=== PATIENT | female | born 1970 | race Caucasian/White ===

== ENCOUNTER 2018-01-28 14:12 | Outpatient (CLI) | payer OTHER ==
[~2018-01-28] VITALS: Ht 162.6 cm; Wt 117.5 kg
[~2018-01-28 14:12] MED LIST: IBUP-15 PO
[2018-01-28 14:39] VITALS: BP 127/69
[2018-01-28] MEDS ORDERED: CALC-823 PO (14:39)
[2018-01-28] MEDS ORDERED: PANT40TA3 PO (14:39)
[2018-01-28] MEDS ORDERED: RANI150T46 PO (14:39)
[2018-01-28] MEDS ORDERED: MULT-884 PO (14:39)
[2018-01-28] MEDS ORDERED: LEVO75TA6 PO (14:39)
[2018-01-28 14:47] LABS: BASOPHILS % (AUTO) 0 % (0-10); EOSINOPHILS # (AUTO) 0.1 10^3/uL (0.0-0.3); EOSINOPHILS % (AUTO) 1 % (0-10); HEMATOCRIT 39 % (35-52); HEMOGLOBIN 12.9 G/DL (11.5-16.0); LYMPHOCYTES # (AUTO) 2.6 X 10^3 (1.0-4.0); LYMPHOCYTES % (AUTO) 36 % (12-44); MEAN CORPUSCULAR HEMOGLOBIN 32 PG (25-34); MEAN CORPUSCULAR HGB CONC 33 G/DL (32-36); MEAN CORPUSCULAR VOLUME 95 FL (80-99); MEAN PLATELET VOLUME 9.8 FL (7.4-10.4); MONOCYTES # (AUTO) 0.6 X 10^3 (0.0-1.0); MONOCYTES % (AUTO) 9 % (0-12); NEUTROPHILS # (AUTO) 3.8 X 10^3 (1.8-7.8); NEUTROPHILS % (AUTO) 53 % (42-75); PLATELET COUNT 320 10^3/uL (130-400); RED BLOOD COUNT 4.07 10^6/uL (4.35-5.85); RED CELL DISTRIBUTION WIDTH 12.4 % (10.0-14.5); WHITE BLOOD COUNT 7.1 10^3/uL (4.3-11.0)
== END 2018-01-28 14:45 | disposition home or self-care (01) ==
LOC: PREOP 14:12
PROVIDERS: ATTEND Surgery
DX: Z01.812 Encounter for preprocedural laboratory examination (principal); Z11.2 Encounter for screening for other bacterial diseases; E66.01 Morbid (severe) obesity due to excess calories; Z68.41 Body mass index [BMI] 40.0-44.9, adult
CPT/HCPCS: 36415; 85025; 87081

== ENCOUNTER 2018-01-31 09:35 | Inpatient (IN) | payer OTHER ==
[~2018-01-31] VITALS: Ht 162.6 cm; Wt 112.8 kg
[~2018-01-31 09:35] MED LIST changes: +CALC-823 PO; +LEVO75TA6 PO; +MULT-884 PO; +PANT40TA3 PO; +RANI150T46 PO
[2018-01-31 11:12] VITALS: BP 135/75
[2018-01-31] MEDS ORDERED: ceFAZolin 2 GM IV Premixed 50 ML IV ONE (11:15)
--- OUTSIDE RECORDS SUMMARY | 2018-01-31 11:25 | XMS REPORT ---
Author Author MAYTE REDDY Organization [facility] Address [address] [place] [address] Care Team Providers Care Grocery Supervisor Name Role Phone MAYTE REDDY Unavailable PROBLEMS Unknown Problems ALLERGIES No Information ENCOUNTERS Encounter Location Date Diagnosis [facility] [address] [facility] [id number] [address] Dec, [facility] [address] [facility] [id number] [address] Dec, No condition on [place] I Z03.89 IMMUNIZATIONS No Known Immunizations SOCIAL HISTORY Never Assessed REASON FOR VISIT OV to [facility] PLAN OF CARE VITAL SIGNS MEDICATIONS Unknown Medications RESULTS No Results PROCEDURES No Known procedures INSTRUCTIONS MEDICATIONS ADMINISTERED No Known Medications
--- OUTSIDE RECORDS SUMMARY | 2018-01-31 11:25 | XMS REPORT ---
Author Author MAYTE REDDY Organization [facility] [place] Address [address] [place] [address] Care Team Providers Care Life Science Research Assistant Name Role Phone MAYTE REDDY Unavailable PROBLEMS Unknown Problems ALLERGIES No Information ENCOUNTERS Encounter Location Date Diagnosis [facility] [place] [address] [facility] [id number] [place] [address] Dec, No condition on [place] I Z03.89 IMMUNIZATIONS No Known Immunizations SOCIAL HISTORY Never Assessed REASON FOR VISIT Psychological evaluation for bariatric surgery. PLAN OF CARE VITAL SIGNS MEDICATIONS Unknown Medications RESULTS No Results PROCEDURES Procedure Date Ordered Result Body Site Psych diagnostic evaluation, new patient Dec 24, 2017 INSTRUCTIONS MEDICATIONS ADMINISTERED No Known Medications
[2018-01-31] MEDS ORDERED: FAMOTIDINE 20MG/2ML IV (PEPCID) IV ONE (11:30)
[2018-01-31] MEDS ORDERED: SCOPOLAMINE 1.5 MG (TRANSDERM-SCOP) PATCH TOP ONE (11:30)
[2018-01-31] MEDS ORDERED: ONDANSETRON 4 MG/2 ML (SDV) Z0FRAN IV ONE (11:30)
[2018-01-31] MEDS: LACTATED RINGERS 1,000 ML IV PRN ×2 (11:34→16:43)
[2018-01-31] MEDS ORDERED: FAMOTIDINE 20MG/2ML IV (PEPCID) ONE (11:34)
[2018-01-31] MEDS ORDERED: ONDANSETRON 4 MG/2 ML (SDV) Z0FRAN ONE ×3 (11:34→16:22)
[2018-01-31] MEDS ORDERED: SCOPOLAMINE 1.5 MG (TRANSDERM-SCOP) PATCH ONE (11:34)
[2018-01-31] MEDS ORDERED: proPOfol 200 MG/20 ML (DIPRIVAN) VIAL IV ONE (12:58)
[2018-01-31] MEDS ORDERED: DEXAMETHASONE 10 MG/ML (DECADRON) 1 ML VIAL ONE (12:58)
[2018-01-31] MEDS ORDERED: NEOSTIGMINE 1 MG/ML 5 ML SYRINGE ONE (12:58)
[2018-01-31] MEDS ORDERED: SEVOFLURANE (ULTANE) 15 ML INHAL SOLN ONE (12:58)
[2018-01-31] MEDS ORDERED: MIDAZOLAM 2 MG/2 ML (VERSED) VIAL ONE (12:58)
[2018-01-31] MEDS ORDERED: LIDOCAINE PF 2% 5 ML (XYLOCAINE) VIAL ONE (12:58)
[2018-01-31] MEDS ORDERED: GLYCOPYRROLATE 0.2 MG/ML (ROBINUL) 2 ML VIAL ONE (12:58)
[2018-01-31] MEDS ORDERED: ROCURONIUM 10 MG/ML 5 ML SYRINGE IV ONE (12:58)
[2018-01-31] MEDS ORDERED: fentaNYL INJECTION 250 MCG/5 ML AMP ONE (12:58)
[2018-01-31] MEDS ORDERED: SUCCINYLCHOLINE INJ 100 MG/5 ML SYR ONE (12:59)
[2018-01-31] MEDS ORDERED: BUP/EPI 0.5% 1:200,000 (SENSORCAINE) 30 ML VIAL ONE (13:01)
--- NOTE | 2018-01-31 13:11 | Progress Note-Pre Operative ---
Pre-Operative Progress Note H&P Reviewed The H&P was reviewed, patient examined and no changes noted. Date Seen by Provider: Jan 31, 2018 Time Seen by Provider: 13:00 Date H&P Reviewed: Jan 31, 2018 Time H&P Reviewed: 13:00 Pre-Operative Diagnosis: morbid obesity, JOHNNIE CALVIN VELEZ MD Jan 31, 2018 13:11
[2018-01-31] MEDS ORDERED: NS IV 1000 ML 1,000 ML IV SCH (13:12)
[2018-01-31] MEDS ORDERED: METOCLOPRAMIDE INJ 10 MG/2 ML (REGLAN) IV PRN (13:15)
[2018-01-31] MEDS ORDERED: NALOXONE 0.4 MG/ML 1 ML (NARCAN) VIAL IV PRN (13:15)
[2018-01-31] MEDS ORDERED: ONDANSETRON 4 MG/2 ML (SDV) Z0FRAN IV PRN (13:15)
[2018-01-31] MEDS ORDERED: diphenhydrAMINE 50 MG/ML INJ (BENADRYL) IVP PRN (13:15)
[2018-01-31] MEDS ORDERED: diphenhydrAMINE 50 MG/ML INJ (BENADRYL) IV PRN (13:15)
[2018-01-31] MEDS ORDERED: oxyCODONE 5 MG/5 ML ORAL SOLN (roxiCODONE) 5 ML UDC PO PRN (13:15)
[2018-01-31] MEDS ORDERED: fentaNYL INJECTION 1,000 MCG in NS (IVPB) 80 ML IV SCH (13:15)
[2018-01-31] MEDS ORDERED: RT-ALBUTEROL SULF 2.5 MG/3 ML PRE-MIX VIAL INH SCH (13:15)
--- NOTE | 2018-01-31 13:24 | Discharge Inst-Surgical ---
D/C Lap Instructions-AGUSTIN Follow Up Appt in 2 weeks Activity as tolerated No driving for 24 hours No driving while on pain medications Incentive Spirometry use every 2 hours while awake phase 1 clear liquid diet 2 weeks. Symptoms to Report: Fever over 101 degree F, Nausea/Vomiting Infection Signs and Symptoms to report: Increased redness, Foul odor of wound, Increased drainage Bathing instructions: May shower Operative Area Clean/Dry; Keep incision clean/dry If any problems/questions: Contact your physician or go to Emergency Room CALVIN VELEZ MD Jan 31, 2018 13:24
--- NOTE | 2018-01-31 16:09 | Progress Note-Post Operative ---
Post-Operative Progess Note Surgeon (s)/Pig Conveyor Operator (s) Surgeon CALVIN VELEZ MD Pig Conveyor Operator: georgina reyes MENTALLY IMPAIRED TEACHER Pre-Operative Diagnosis morbid obesity, JOHNNIE Post-Operative Diagnosis same Procedure & Operative Findings Date of Procedure 01/31/18 Procedure Performed/Findings laparoscopic gastric sleeve resection. Anesthesia Type GET Estimated Blood Loss Estimated blood loss (mL): minimal Specimens/Packing Specimens Removed stomach CALVIN VELEZ MD Jan 31, 2018 16:09
[2018-01-31] MEDS ORDERED: morphine INJ 10 MG/ML 1ML (SYR OR VIAL) ONE (16:22)
[2018-01-31] MEDS ORDERED: morphine INJ 10 MG/ML 1ML (SYR OR VIAL) IVP ONE (16:30)
[2018-01-31] MEDS ORDERED: fentaNYL INJECTION 100 MCG/2 ML AMP IVP ONE ×2 (16:30→17:45)
[2018-01-31] MEDS ORDERED: PROMETHAZINE INJ 25 MG/ML (PHENERGAN) AMP IVP ONE (16:30)
[2018-01-31] MEDS ORDERED: ONDANSETRON 4 MG/2 ML (SDV) Z0FRAN IVP PRN (16:30)
[2018-01-31 17:15] VITALS: BP 123/57
[2018-01-31] MEDS ORDERED: METOCLOPRAMIDE INJ 10 MG/2 ML (REGLAN) ONE (17:19)
[2018-01-31] MEDS: METOCLOPRAMIDE INJ 10 MG/2 ML (REGLAN) IVP SCH ×2 (17:33→22:59)
[2018-01-31 18:15] VITALS: BP 134/89
[2018-01-31] MEDS: ONDANSETRON 4 MG/2 ML (SDV) Z0FRAN IVP SCH ×2 (18:17→18:42)
[2018-01-31] MEDS: RT-ALBUTEROL SULF 2.5 MG/3 ML PRE-MIX VIAL INH SCH ×2 (18:39→21:07)
[2018-01-31] MEDS: metroNIDAZOLE 500MG/100ML IVPB 100 ML IV SCH (18:39)
[2018-01-31] MEDS: 1/2 NS W/KCL 20 MEQ/L 1,000 ML IV SCH (18:39)
[2018-01-31 19:15] VITALS: BP 128/77
[2018-01-31] MEDS ORDERED: PROMETHAZINE INJ 25 MG/ML (PHENERGAN) AMP ONE (19:36)
[2018-01-31] MEDS ORDERED: PROMETHAZINE INJ 25 MG/ML (PHENERGAN) AMP IVP PRN (19:45)
[2018-01-31] MEDS: ceFAZolin 2 GM IV Premixed 50 ML IV SCH (21:01)
[2018-01-31] MEDS: ENOXAPARIN 40 MG/0.4 ML (LOVENOX) SYR SC SCH (21:02)
[2018-02-01] VITALS (7 sets, daily range): BP systolic 53–169; BP diastolic 68–84
--- NOTE | 2018-02-01 00:08 | OPERATIVE REPORT ---
DATE OF SERVICE: 01/31/2018 ATTENDING PRIMARY CARE PHYSICIAN: Dr. Burger. PREOPERATIVE DIAGNOSES: Morbid obesity, sleep apnea. POSTOPERATIVE DIAGNOSES: Morbid obesity, sleep apnea. PROCEDURE: Laparoscopic gastric sleeve resection. SURGEON: Maria Antonia Velez MD ENTRY LEVEL FINANCIAL ANALYST: Danial Smith APRN ANESTHESIA: General endotracheal. ESTIMATED BLOOD LOSS: Minimal. FINDINGS: Mild hepatomegaly, normal appearing gallbladder. DISPOSITION: The patient tolerated the procedure well. INDICATIONS: The patient is a 47-year-old female with history of morbid obesity who is in our bariatric surgical program for the laparoscopic gastric sleeve resection and meets the medical criteria for bariatric surgery. She reports that she gained the majority of her adult weight in her 30s after the of her second child. She reports that she has tried numerous diet and exercise attempts with no success. She has tried diet programs including Chula Cornelius, Weight Watchers, Atkins, beta-hCG diet with little success. She has tried exercise regimens including walking, Cindy, aerobic exercise classes, Plyometrics as well as resistance weight training on lose some weight; however, nothing significant. She has also tried medications including phentermine, fenfluramine, Belviq, Topamax and would lose some weight; however, would regain the weight back. Her medical comorbidities related to obesity include gastroesophageal reflux disease and sleep apnea. DESCRIPTION OF PROCEDURE: The patient was brought to the operating room, laid supine on the table. After adequate IV pain and sedating medications and general endotracheal intubation, the abdomen was prepped and draped in standard surgical fashion. A 0.5% Marcaine with epinephrine was used to anesthetize the overlying skin in the left upper abdominal quadrant and a small transverse skin made using a 15 blade. An 0 silk suture was applied to the medial aspect of the incision for traction and a Veress needle inserted with a low opening pressure of 0 mmHg and the abdomen was then insufflated to 15 mmHg pressure. The Veress needle removed and a 5 mm Xcel trocar placed followed by a 5 mm 45-degree angle laparoscope visualizing the peritoneal cavity. A 4-quadrant abdominal x-ray performed. There was a mild hepatomegaly. There was normal appearing gallbladder. No hiatal hernia was identified. Under direct visualization, we then proceeded to place a midabdominal left of midline 10 mm port after the skin and peritoneal lining were anesthetized using 0.5% Marcaine with epinephrine and a transverse skin incision made using a 15 blade. In a similar manner, a midabdominal right of midline 15 mm port was placed followed by a right upper abdominal quadrant 5 mm port. The epigastric region was then anesthetized and a transverse skin incision made using 11 blade. A tract was then created to the abdominal wall layers using a trocar to a 5 mm port. Through this opening, a medium sized Kianna liver retractor was placed and the left lobe of the liver retracted anteriorly and superiorly. The patient was then placed in steep reverse Trendelenburg position. We then measured along the greater curvature from the pylorus approximately 6 cm and marked this with a marking pen. The gastrocolic ligament next to the stomach was then opened using the Sonicision next to the stomach entering the lesser sac. We then proceeded with caudal dissection until we were approximately 2 cm below our marking using Sonicision with visualization of good hemostasis. We then proceeded cephalad along the greater curvature taking down the short gastric vessels with the Sonicision with visualization of good hemostasis. The angle of His connective tissue fibers were taken down as well including the posterior stomach behind this region with visualization of good hemostasis. A 42-Setswana angled bougie was then placed under direct visualization and guided into the antrum of the stomach. Using this as our guide for gastric sleeve resection, we first proceeded with a polyglycolic acid 45 mm black load 2 cm below our marking. We then proceeded with one 60 mm black load followed by two 60 mm purple loads and a 45 mm purple load. We completed our resection allowing 2 cm near the gastroesophageal junction. The staple line corners were then clipped with 5 mm clips. The staple line was then covered with Tisseel fibrin glue and covered with omentum. The liver retractor removed and the stomach removed through the 15 mm port site. A leak test was also performed after infusing approximately 60 mL of air with no leak identified. The air was suctioned out of the oral gastric tube and removed as was the bougie. The fascia and peritoneum to the 10 and 15 mm ports were then closed under direct visualization using a Osman-Gary device and an 0 Vicryl suture. The abdomen was desufflated and remaining ports removed. All skin incisions were closed using 4-0 Monocryl running subcuticular sutures. Wounds were then cleaned and covered with Dermabond. The patient tolerated the procedure well. We will admit her for observation. We will start pain control with a REAL ESTATE SALESPERSON pump with fentanyl as well as DVT prophylaxis with early ambulation, calf SCDs as well as Lovenox injections. Tomorrow morning, we will start a phase I clear liquid diet starting at 30 mL every half hour and once she is tolerating 60 mL of fluid every half hour, have adequate pain control with oral pain medications, ambulating well, we will discharge her home. She will be instructed to follow a phase I clear liquid diet for the next 2 weeks. Job ID: [id number] DocumentID: [id number] Dictated Date: 01/31/2018 16:22:10 Ventilator Specialist Date: 02/01/2018 00:07:53 Dictated By: MARIA ANTONIA VELEZ MD
[2018-02-01] MEDS: ONDANSETRON 4 MG/2 ML (SDV) Z0FRAN IVP SCH ×4 (00:18→23:47)
[2018-02-01] MEDS: RT-ALBUTEROL SULF 2.5 MG/3 ML PRE-MIX VIAL INH SCH ×6 (01:18→22:06)
[2018-02-01] MEDS ORDERED: PROMETHAZINE INJ 25 MG/ML (PHENERGAN) AMP ONE ×2 (01:23→07:39)
[2018-02-01] MEDS: PROMETHAZINE INJ 25 MG/ML (PHENERGAN) AMP IVP PRN ×2 (01:39→07:44)
[2018-02-01] MEDS: 1/2 NS W/KCL 20 MEQ/L 1,000 ML IV SCH ×5 (01:53→22:43)
[2018-02-01] MEDS: metroNIDAZOLE 500MG/100ML IVPB 100 ML IV SCH ×2 (02:55→10:12)
[2018-02-01] MEDS: ceFAZolin 2 GM IV Premixed 50 ML IV SCH ×2 (05:17→13:01)
[2018-02-01] MEDS: METOCLOPRAMIDE INJ 10 MG/2 ML (REGLAN) IVP SCH ×2 (05:17→11:49)
[2018-02-01] MEDS: ONDANSETRON 4 MG/2 ML (SDV) Z0FRAN IVP PRN ×2 (05:18→15:32)
[2018-02-01] MEDS: PANTOPRAZOLE 40 MG (PROTONIX) TAB PO SCH (05:18)
[2018-02-01 06:05] LABS: HEMOGLOBIN 12.4 G/DL (11.5-16.0); MEAN PLATELET VOLUME 10.3 FL (7.4-10.4); RED BLOOD COUNT 3.98 10^6/uL (4.35-5.85); RED CELL DISTRIBUTION WIDTH 12.6 % (10.0-14.5); WHITE BLOOD COUNT 13.5 10^3/uL (4.3-11.0)
[2018-02-01] MEDS: ENOXAPARIN 40 MG/0.4 ML (LOVENOX) SYR SC SCH ×2 (08:35→20:30)
[2018-02-01] MEDS: SENNA W/DOCUSATE (SENOKOT S) TABLET PO SCH (08:40)
[2018-02-01] MEDS ORDERED: PANTOPRAZOLE 40 MG (PROTONIX) VIAL IV SCH (09:00)
--- NOTE | 2018-02-01 09:57 | Anesthesia-General Post-Op ---
General Patient Condition Mental Status/LOC: Same as Preop Cardiovascular: Satisfactory Nausea/Vomiting: Absent Respiratory: Satisfactory Pain: Controlled Complications: Absent Post Op Complications Complications None Follow Up Care/Instructions Patient Instructions None needed. Anesthesia/Patient Condition Patient Condition Patient is doing well, no complaints, stable vital signs, no apparent adverse anesthesia problems. No complications reported per nursing. D/C home per [facility] Criteria: No SANG CANCHOLA CRNA Feb 01, 2018 09:57
--- NOTE | 2018-02-01 10:32 | Progress Note (SOAP) ---
Subjective Date Seen by a Provider: Feb 01, 2018 Time Seen by a Provider: 10:30 Subjective/Events-last exam having significant nausea and dry heaving still. pain controlled. no fever/ chills. Objective Exam Vital Signs Date Time Temp Pulse Resp B/P (MAP) Pulse Ox O2 Delivery O2 Flow Rate FiO2 02/01/18 09:00 Room Air 0.00 02/01/18 08:10 98.8 93 20 141/69 (93) 95 Room Air 02/01/18 07:00 20 02/01/18 06:18 94 Room Air 02/01/18 04:15 99.8 88 20 165/77 (106) 95 Room Air 02/01/18 01:18 Room Air 02/01/18 00:00 99.9 91 20 169/84 (112) 100 Room Air 01/31/18 21:00 18 01/31/18 21:00 Nasal Cannula 5.00 01/31/18 19:15 98.2 79 18 128/77 (94) 100 Room Air 01/31/18 18:15 98.4 95 18 134/89 (104) 100 Room Air 01/31/18 18:00 Nasal Cannula 5.00 01/31/18 17:15 97.8 64 22 123/57 (79) 96 Room Air 01/31/18 11:12 98.0 95 18 135/75 (95) 98 Room Air I & O 02/01/18 07:00 Intake Total 1050 ml Output Total 990 ml Balance 60 ml Capillary Refill : General Appearance: No Apparent Distress HEENT: PERRL/EOMI Neck: Full Range of Motion Respiratory: Lungs Clear, Normal Breath Sounds Cardiovascular: Regular Rate, Rhythm Gastrointestinal: soft, tenderness Extremity: Normal Capillary Refill Neurologic/Psychiatric: Alert, Oriented x3 Skin: Normal Color Lymphatic: No Adenopathy Results Lab Laboratory Tests 01/31/18 11:00: Urine Test NEGATIVE 02/01/18 05:15: White Blood Count 13.5H, Red Blood Count 3.98L, Hemoglobin 12.4, Hematocrit 38, Mean Corpuscular Volume 96, Mean Corpuscular Hemoglobin 31, Mean Corpuscular Hemoglobin Concent 33, Red Cell Distribution Width 12.6, Platelet Count 315, Mean Platelet Volume 10.3 Assessment/Plan Assessment/Plan Assess & Plan/Chief Complaint s/p laparoscopic gastric sleeve resection. will add decadron 4mg IV. start phase 1 clear liquid diet when able to. OOB-chair and ambulate. Clinical Quality Measures DVT/VTE Risk/Contraindication: Risk Factor Score Per Nursin RFS Level Per Nursing on Admit: 3=High CALVIN VELEZ MD Feb 01, 2018 10:31
[2018-02-01] MEDS: DEXAMETHASONE 4 MG/ML SDV (DECADRON) IV SCH ×3 (11:49→23:46)
[2018-02-01] MEDS ORDERED: METOCLOPRAMIDE INJ 10 MG/2 ML (REGLAN) IVP PRN (13:15)
[2018-02-01] MEDS: PANTOPRAZOLE 40 MG (PROTONIX) VIAL IV SCH (20:30)
[2018-02-01] MEDS ORDERED: LORazepam INJ 2 MG/ML (ATIVAN) VIAL IVP PRN (20:45)
[2018-02-02] MEDS: RT-ALBUTEROL SULF 2.5 MG/3 ML PRE-MIX VIAL INH SCH ×3 (02:27→10:38)
[2018-02-02 04:00] VITALS: BP 145/74
[2018-02-02] MEDS: 1/2 NS W/KCL 20 MEQ/L 1,000 ML IV SCH (05:25)
[2018-02-02] MEDS: PANTOPRAZOLE 40 MG (PROTONIX) TAB PO SCH (06:09)
[2018-02-02] MEDS: DEXAMETHASONE 4 MG/ML SDV (DECADRON) IV SCH (06:09)
[2018-02-02] MEDS: ONDANSETRON 4 MG/2 ML (SDV) Z0FRAN IVP SCH (06:09)
[2018-02-02] MEDS: PANTOPRAZOLE 40 MG (PROTONIX) VIAL IV SCH (07:13)
[2018-02-02 07:42] VITALS: BP 135/70
--- NOTE | 2018-02-02 11:12 | Progress Note (SOAP) ---
Subjective Date Seen by a Provider: Feb 02, 2018 Time Seen by a Provider: 11:00 Subjective/Events-last exam doing much better today. no nausea/vomiting. tolerating phase 1 clear liquid diet. ambulating in halls. pain controlled. Objective Exam Vital Signs Date Time Temp Pulse Resp B/P (MAP) Pulse Ox O2 Delivery O2 Flow Rate FiO2 02/02/18 07:42 98.5 93 16 135/70 (91) 96 Room Air 02/02/18 06:10 18 02/02/18 04:00 99.6 84 18 145/74 (97) 96 Room Air 02/01/18 23:50 99.4 84 18 159/75 (103) 95 NIV CPAP 02/01/18 21:15 18 02/01/18 21:00 Room Air 0.00 02/01/18 20:00 99.6 81 18 155/70 (98) Room Air 02/01/18 16:06 99.9 93 20 53/71 (65) 96 Room Air 02/01/18 12:00 99.3 73 20 147/68 (94) 97 Room Air I & O 02/02/18 07:00 Intake Total 2105 ml Output Total 5300 ml Balance -3195 ml Capillary Refill : General Appearance: No Apparent Distress HEENT: PERRL/EOMI Neck: Full Range of Motion Respiratory: Chest Non Tender, Lungs Clear, Normal Breath Sounds Cardiovascular: Regular Rate, Rhythm Gastrointestinal: normal bowel sounds, soft, other (incisions clean/dry) Extremity: Normal Capillary Refill Neurologic/Psychiatric: Alert, Oriented x3 Skin: Normal Color Lymphatic: No Adenopathy Assessment/Plan Assessment/Plan Assess & Plan/Chief Complaint s/p laparoscopic gastric sleeve resection. will add decadron 4mg IV. tolerating phase 1 clear liquid diet. home soon. continue with clear liquids for next 2 weeks. f/u in 2 weeks. Clinical Quality Measures DVT/VTE Risk/Contraindication: Risk Factor Score Per Nursin RFS Level Per Nursing on Admit: 3=High CALVIN VELEZ MD Feb 02, 2018 11:12
[2018-02-02] MEDS: SENNA W/DOCUSATE (SENOKOT S) TABLET PO SCH (11:19)
[2018-02-02] MEDS: ENOXAPARIN 40 MG/0.4 ML (LOVENOX) SYR SC SCH (11:19)
[2018-02-02] MEDS ORDERED: PROM25TA14 PO (11:42)
[2018-02-02] MEDS ORDERED: DEXA4TAB66 PO (11:42)
[2018-02-02] MEDS ORDERED: HYDR-34 PO (11:42)
[2018-02-02 11:45] VITALS: BP 135/70
== END 2018-02-02 11:45 | disposition home or self-care (01) | DRG 621 ==
LOC: 4TH 11:00 → SDC 11:00 → EDSTATUS 11:45 → 4TH 17:19 → SDC 17:19 → 4TH 02-01 13:13 → SDC 02-02 11:45
PROVIDERS: ADMIT Surgery; ATTEND Surgery
PROC: 0DB64Z3 Excision of Stomach, Percutaneous Endoscopic Approach, Vertical (ICD-10-PCS; principal; 2018-01-31 13:48)
DX: E66.01 Morbid (severe) obesity due to excess calories (principal); Z68.41 Body mass index [BMI] 40.0-44.9, adult; G47.33 Obstructive sleep apnea (adult) (pediatric); E03.9 Hypothyroidism, unspecified; K21.9 Gastro-esophageal reflux disease without esophagitis; R11.0 Nausea; Z87.891 Personal history of nicotine dependence
CPT/HCPCS: 36415; 84703; 85027; 88307; 94664

== ENCOUNTER 2020-07-14 05:32 | Outpatient (CLI) | payer BC ==
[~2020-07-14] VITALS: Ht 162.6 cm; Wt 91.6 kg
[~2020-07-14 05:32] MED LIST changes: +DEXA4TAB66 PO; +HYDR-34 PO; -PANT40TA3 PO; +PANT40TA52 PO; +PROM25TA14 PO; +RANI-613 PO; -RANI150T46 PO
[2020-07-14] MEDS ORDERED: FAMO20TA3 PO (10:29)
== END 2020-07-14 12:27 | disposition home or self-care (01) ==
LOC: PREOP 05:32 → EDSTATUS 08:30 → PREOP 12:27
PROVIDERS: ATTEND Surgery
DX: Z01.818 Encounter for other preprocedural examination (principal)

== ENCOUNTER 2020-07-21 10:00 | Day surgery (SDC) | payer BC, OTHER ==
--- NOTE | 2020-07-20 10:55 | HISTORY AND PHYSICAL ---
DATE OF SERVICE: PROCEDURE DATE: 07/21/2020. ATTENDING PRIMARY CARE PHYSICIAN: Thomas Kang at [facility]. HISTORY OF PRESENT ILLNESS: The patient is a 49-year-old female, who is known to us. She is status post laparoscopic gastric sleeve resection by us on 01/31/2018. On today's visit, she reports that she is in need of an EGD and a colonoscopy. She reports she has not had a colonoscopy done at this point in her life. She denies any family history of any colon cancer. She denies any diarrhea or any abdominal pain, but does report episodes of constipation in which she does take Linzess on occasion. She also reports increasing reflux and is currently on Protonix 20 mg b.i.d. as well as famotidine 20 mg b.i.d. and reports that this is not helping her reflux. She also reports that she does get the feeling that food is getting stuck in her throat on occasion, but denies any nausea or vomiting. PAST MEDICAL HISTORY: Gastroesophageal reflux disease, hypothyroidism, obstructive sleep apnea, morbid obesity. PAST SURGICAL HISTORY: in 12/1991 and 09/1998, left plantar fasciitis release in 2011, right shoulder arthroscopy with repair of labrum, repair of rotator cuff in 2007, left knee arthroscopy in 1997, bladder sling and ablation in 2012, laparoscopic gastric sleeve resection on 01/31/2018, and repair of right elbow ligament in 2020. ALLERGIES: PREDNISONE and DILAUDID. MEDICATIONS: Synthroid 75 mcg daily, Protonix 20 mg b.i.d., famotidine 20 mg b.i.d., vitamin B12 daily, calcium daily, multivitamin daily. SOCIAL HISTORY: Previous for smoke at 2 packs per day for 20 years, quit in 2007. Rare for alcohol. FAMILY HISTORY: Mother with hypertension. Father with hypertension. Sister with diabetes and hypertension. Paternal grandfather with diabetes. VITAL SIGNS: Blood pressure 122/76. Current weight is 202.8 at 5 feet 4 inches with a body mass index of 34.7. REVIEW OF SYSTEMS: This is a well-nourished female, in no acute distress. She is not experiencing any shortness of breath or difficulty breathing. No chest pain, palpitations or diaphoresis. No nausea or vomiting. She denies any abdominal pain. She does report reflux, but no hematemesis or any coffee ground emesis. No diarrhea, but does report occasional constipation. No red blood per rectum. No dark tarry stools. No fever or chills. No recent inadvertent weight loss. All other review of systems negative. PHYSICAL EXAMINATION: CHEST: Clear. Good breath sounds bilaterally. HEART: Regular, no murmurs. EXTREMITIES: No lower extremity edema. Negative Homans sign. HEENT: No scleral icterus. NECK: No cervical lymphadenopathy. ABDOMEN: Soft, nontender, nondistended. SKIN: Warm, dry and pink. NEUROLOGIC: Awake, alert and oriented x3. ASSESSMENT AND PLAN: A 49-year-old female, who is in need of a screening colonoscopy, who also has worsening reflux. At this time, we will proceed with scheduling her for an EGD with biopsies as appropriate as well as possible balloon dilatation and a screening colonoscopy. The risks and benefits of the procedure as well as the procedure and home care instructions were explained to the patient. The patient verbalized understanding of instructions and agrees to proceed as planned. We will proceed with scheduling her for an EGD with biopsies as appropriate as well as possible balloon dilatation and a screening colonoscopy. Job ID: [id number] DocumentID: [id number] Dictated Date: 07/20/2020 08:45:57 Lining Feller Blindstitch Date: 07/20/2020 10:54:27 Dictated By: GEOVANY MATTA
[~2020-07-21] VITALS: Ht 163 cm; Wt 92.0 kg
[~2020-07-21 10:00] MED LIST changes: +FAMO20TA3 PO; +HURRICAINE EXT TUBE (BENZOCAINE) XX PRN; +LACTATED RINGERS 1,000 ML IV ONE; +LACTATED RINGERS 1,000 ML IV STA; +LIDOCAINE JELLY 2% 6 ML SYRINGE MM PRN
[2020-07-21 10:20] VITALS: BP 129/72
[2020-07-21] MEDS ORDERED: ONDANSETRON 4 MG/2 ML (SDV) Z0FRAN ONE (10:29)
[2020-07-21] MEDS ORDERED: MIDAZOLAM 2 MG/2 ML (VERSED) VIAL ONE (10:29)
[2020-07-21] MEDS ORDERED: PROPOFOL INJECTION 50 ML IV ONE ×2 (10:29→10:54)
[2020-07-21] MEDS ORDERED: HURRICAINE EXT TUBE (BENZOCAINE) ONE (10:34)
--- NOTE | 2020-07-21 10:40 | Progress Note-Pre Operative ---
Pre-Operative Progress Note H&P Reviewed The H&P was reviewed, patient examined and no changes noted. Date Seen by Provider: Jul 21, 2020 Time Seen by Provider: 10:00 Date H&P Reviewed: Jul 21, 2020 Time H&P Reviewed: 10:00 Pre-Operative Diagnosis: dysphagia, screening o CALVIN VELEZ MD Jul 21, 2020 10:40
[2020-07-21] MEDS ORDERED: LIDOCAINE JELLY 2% 6 ML SYRINGE ONE (10:41)
--- NOTE | 2020-07-21 10:41 | Discharge Inst-Surgical ---
D/C Lap Instructions-AGUSTIN Follow Up Appt in 2 weeks Activity as tolerated High Fiber Diet 25g or more per day Avoid Alcohol, Caffeine, Spicy Feather Sound and Acid foods. Drink 64 fluid oz or more of fluids per day. Symptoms to Report: Fever over 101 degree F, Nausea/Vomiting If any problems/questions: Contact your physician or go to Emergency Room CALVIN VELEZ MD Jul 21, 2020 10:41
[2020-07-21] MEDS ORDERED: HYDROcodone/APAP 5 MG/325 MG (LORTAB) TAB PO PRN (10:45)
[2020-07-21] MEDS ORDERED: ACETAMINOPHEN 325 MG TABLET PO PRN (10:45)
[2020-07-21] MEDS ORDERED: ONDANSETRON 4 MG/2 ML (SDV) Z0FRAN IVP PRN (10:45)
[2020-07-21] MEDS ORDERED: morphine INJ 10 MG/ML 1ML (SYR OR VIAL) IVP PRN ×2 (10:45)
[2020-07-21 11:30] VITALS: BP 103/58
[2020-07-21 11:35] VITALS: BP 104/58
--- NOTE | 2020-07-21 11:36 | Progress Note-Post Operative ---
Post-Operative Progess Note Surgeon (s)/Gathering Worker (s) Surgeon CALVIN VELEZ MD Gathering Worker: none Pre-Operative Diagnosis dysphagia, screening colo Post-Operative Diagnosis reflux esophagitis(stage 2), no HH, moderate antral gastritis, mild gastric stricture. cnronic stage 2 ext and int hemorrhoids. Procedure & Operative Findings Date of Procedure 07/21/20 Procedure Performed/Findings EGD with bx and balloon dilatation. colonoscopy Anesthesia Type mac Estimated Blood Loss Estimated blood loss (mL): minimal Specimens/Packing Specimens Removed GE jxn, antrum CALVIN VELEZ MD Jul 21, 2020 11:36
--- NOTE | 2020-07-21 11:51 | Anesthesia-General Post-Op ---
MAC Patient Condition Mental Status/LOC: Same as Preop Cardiovascular: Satisfactory Nausea/Vomiting: Absent Respiratory: Satisfactory Pain: Controlled Complications: Absent Post Op Complications Complications None Follow Up Care/Instructions Patient Instructions None needed. Anesthesiology Discharge Order Discharge Order Patient is doing well, no complaints, stable vital signs, no apparent adverse anesthesia problems. No complications reported per nursing. ANAM EM CRNA Jul 21, 2020 11:51
[2020-07-21 12:05] VITALS: BP 118/66
--- NOTE | 2020-07-21 18:09 | OPERATIVE REPORT ---
DATE OF SERVICE: 07/21/2020 ATTENDING SUPPORT SERVICE TECH: Lizeth Kang DNP, [facility]. PREOPERATIVE DIAGNOSES: Dysphagia, screening colonoscopy. 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 No distal obstructions. Mild chronic stage II external and internal hemorrhoids. PROCEDURE: EGD with biopsy and balloon dilatation. Colonoscopy. SURGEON: Calvin Velez MD. ANESTHESIA: Monitored anesthesia care. ESTIMATED BLOOD LOSS: Minimal. 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 No distal obstructions. Mild chronic stage II external and internal hemorrhoids. DISPOSITION: The patient tolerated the procedure well. INDICATIONS: The patient is a 49-year-old female known to us. 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 She reports that she has had intermittent episodes of dysphagia, specific types of foods. She is currently on Protonix as well as famotidine. She does not report any nausea, no vomiting as well as no hematemesis, no coffee-ground emesis. She is also in need of a screening colonoscopy. She has had a longstanding history of constipation and does take Linzess as needed. She does not report any family history of colon cancer. DESCRIPTION OF PROCEDURE: The patient was brought to the endoscopy suite, laid in left lateral decubitus position. After adequate IV pain and sedative medications and monitored anesthesia care, the mouthpiece was applied. The endoscope was then placed in the mouth, visualizing the pharynx and hypopharyngeal region. Vocal cords, epiglottis and vallecula identified and appeared to be normal. The endoscope was then gently intubated. Esophageal opening and esophagus insufflated. The endoscope was then advanced to the first, second and third portion of esophagus. At the level of the GE junction, a reflux esophagitis stage II identified. No ulcers or strictures identified in this region. A biopsy was taken with forceps with visualization of good hemostasis. The endoscope was then advanced in the stomach and endoscope retroflexed visualizing no hiatal hernia. There was a mild to moderate gastritis. At the level of the incisura angularis, there may have been a mild to moderate stricture; however, the endoscope was easily passed through this area. There was a moderate gastritis of the stomach antrum. No formal ulcerations, polyps, or any neoplasms. A biopsy was taken of the antrum to rule out H. pylori with visualization of good hemostasis. The endoscope was then advanced through the pylorus and the first and second portion of the duodenum, which appeared normal with no distal obstructions. We then proceeded with balloon dilatation of the gastric stricture and the balloon was placed in the distal stomach and pulled back to the area of the stricture. We then went from 2 to 4 to 6 atmospheres of pressure with moderate resistance and left this in place for approximately 60 seconds. The balloon was then desufflated and removed with visualization of good hemostasis as well as no leak as well as no mucosal tears. The endoscope was then slowly withdrawn while taking a second look and suctioning of residual air with no additional findings. A digital rectal examination was performed, which revealed chronic stage II external and internal hemorrhoids, not actively edematous nor inflamed and no bleeding. Normal sphincter tone was felt and there were no palpable masses. The endoscope was then intubated into the anus and rectum gently insufflated. The endoscope was then advanced through the valves of Powell of the rectum with no polyps or any neoplasms identified. The endoscope was then intubated and anus and rectum gently insufflated. The endoscope was then advanced to the valves of Powell of the rectum with no polyps or any neoplasms identified. Through the sigmoid colon, no diverticulosis identified. The endoscope was then advanced to the remainder of the descending, transverse and ascending colon to the cecum. These segments were normal. There were no polyps or any neoplasms identified. The endoscope was then slowly withdrawn while taking a second look and suctioning of residual air with no additional findings. The patient tolerated the procedure well. We will recommend the necessary lifestyle and diet accommodation for her status post laparoscopic gastric sleeve resection, which would encompass small and more frequent meals as well as avoidance of foods that do cause dysphagia including dry breads and crackers as well as salads. We will have her focus on the meat protein sources and should be first and foremost, which we will continue to augment restriction and weight loss. We will also have her avoid caffeinated beverages, spicy, greasy and acidic foods and continue her acid reduction medication regimen. We will also recommend a high fiber diet with fiber supplementation, which should equal or exceed 25 grams daily as well as significant amounts of water to promote soft stools on a daily basis and to prevent swing episodes of constipation requiring medications. If she is asymptomatic, she does not need another colonoscopy for another 10 years. Job ID: [id number] DocumentID: [id number] Dictated Date: 07/21/2020 11:31:54 [employer] Date: 07/21/2020 18:08:10 Dictated By: CALVIN VELEZ MD
== END 2020-07-21 12:10 | disposition home or self-care (01) ==
LOC: ENDO 10:00
PROVIDERS: ATTEND Surgery
DX: K21.00 Gastro-esophageal reflux disease with esophagitis, without bleeding (principal); K64.1 Second degree hemorrhoids; K29.70 Gastritis, unspecified, without bleeding; K31.89 Other diseases of stomach and duodenum; K59.00 Constipation, unspecified; E66.01 Morbid (severe) obesity due to excess calories; E03.9 Hypothyroidism, unspecified; Z98.84 Bariatric surgery status; Z79.899 Other long term (current) drug therapy; G47.33 Obstructive sleep apnea (adult) (pediatric); Z79.890 Hormone replacement therapy; Z87.891 Personal history of nicotine dependence; Z68.34 Body mass index [BMI] 34.0-34.9, adult